=== PATIENT | male | born 1945 | race Caucasian/White ===

== ENCOUNTER 2020-02-28 18:41 | Emergency (ER) | payer OTHER, MEDICARE ==
[~2020-02-28] VITALS: Ht 185.4 cm; Wt 106.6 kg
[~2020-02-28 18:41] MED LIST: ASPI81CH PO; FISH1000 PO; HCTZ/TRIAMTERENE PO; Levitra20 MG PO; METF850 PO; METO50 PO; NIFE30ER PO; OMEP20ER PO; QUET25 PO
[2020-02-28 19:34] LABS: BASOPHILS ABSOLUTE AUTO 0.09 K/mm3 (0.00-0.23); BASOPHILS PERCENT AUTO 1 % (0-2); EOSINOPHILS ABSOLUTE AUTO 0.05 K/mm3 (0.00-0.68); EOSINOPHILS PERCENT AUTO 0 % (0-6); Hematocrit 55.1 % (37.0-53.0); Hemoglobin 18.6 g/dL (13.5-17.5); IMMATURE GRAN ABSOLUTE AUTO 0.09 K/mm3 (0.00-0.10); IMMATURE GRAN PERCENT AUTO 1 % (0-1); LYMPHOCYTES ABSOLUTE AUTO 1.39 K/mm3 (0.84-5.20); LYMPHOCYTES PERCENT AUTO 8 % (21-46); MONOCYTES ABSOLUTE AUTO 0.93 K/mm3 (0.16-1.47); MONOCYTES PERCENT AUTO 6 % (4-13); Mean Corpuscular HGB 28.6 pg (26.0-34.0); Mean Corpuscular HGB Conc 33.8 g/dL (31.5-36.5); Mean Corpuscular Volume 85 fL (80-100); Mean Platelet Volume 9.5 fL (9.1-12.4); NEUTROPHILS ABSOLUTE AUTO 13.97 K/mm3 (1.96-9.15); NEUTROPHILS PERCENT AUTO 85 % (41-73); Platelet Count 231 K/mm3 (150-400); RDW Coefficient Variation 13.4 % (11.7-14.2); RDW Standard Deviation 41.8 fL (35.1-46.3); White Blood Cell Count 16.52 K/mm3 (4.00-11.30)
[2020-02-28 20:48] LABS: Albumin/Globulin Ratio 0.8 (0.8-1.8); Bilirubin, Total 3.7 mg/dL (0.1-1.0); Bun/Creatinine Ratio 18.1 (12.0-20.0); Calcium, Blood 9.9 mg/dL (8.5-10.1); Creatinine, Blood 1.38 mg/dL (0.60-1.20); Globulin, Blood 4.9 g/dL (2.2-4.0); Potassium, Blood 3.7 mmol/L (3.5-5.5); Total Protein, Blood 8.9 g/dL (6.4-8.2)
[2020-02-29 00:48] LABS: International Normalized Ratio 1.07; Prothrombin Time Results 11.4 Sec (9.7-11.5)
== END 2020-02-29 02:27 | disposition short-term general hospital (02) ==
LOC: ER 18:41
PROVIDERS: Emergency Medicine; Physician Assistant
DX: A41.9 Sepsis, unspecified organism (principal); K80.50 Calculus of bile duct without cholangitis or cholecystitis without obstruction; E86.0 Dehydration; E87.1 Hypo-osmolality and hyponatremia; I10 Essential (primary) hypertension; E11.9 Type 2 diabetes mellitus without complications; Z87.891 Personal history of nicotine dependence; N17.9 Acute kidney failure, unspecified; Z88.0 Allergy status to penicillin; Z88.8 Allergy status to other drugs, medicaments and biological substances; Z79.82 Long term (current) use of aspirin; Z79.899 Other long term (current) drug therapy
CPT/HCPCS: 36415; 74177; 80053; 83605; 83690; 85025; 85610; 85730; 87040; 87077; 87186; 96361; 96365; 96367; 96375; 96376; 99284-25; J0744; J1170; J2405; J7030; Q9967; U0002

== ENCOUNTER 2020-05-06 11:26 | Day surgery (SDC) | payer OTHER ==
[~2020-05-06] VITALS: Ht 185.4 cm; Wt 100.4 kg
[~2020-05-06 11:26] MED LIST changes: +AMLO10 PO; +METF500 PO; +OLME20 PO; +TEMA30 PO; +Vitamin D2000 UNIT PO
== END 2020-05-06 13:40 | disposition home or self-care (01) ==
LOC: ORSCSDS 11:26
PROVIDERS: Internal Medicine Gastroenterology
PROC: 0DB68ZX Excision of Stomach, Via Natural or Artificial Opening Endoscopic, Diagnostic (ICD-10-PCS; principal; 2020-05-06 12:45)
DX: R10.9 Unspecified abdominal pain (principal); R19.7 Diarrhea, unspecified; Z87.11 Personal history of peptic ulcer disease; I48.91 Unspecified atrial fibrillation; I10 Essential (primary) hypertension; K21.9 Gastro-esophageal reflux disease without esophagitis; E11.9 Type 2 diabetes mellitus without complications; E78.5 Hyperlipidemia, unspecified; K74.60 Unspecified cirrhosis of liver; Z87.891 Personal history of nicotine dependence; K44.9 Diaphragmatic hernia without obstruction or gangrene; Z79.82 Long term (current) use of aspirin; Z79.899 Other long term (current) drug therapy
CPT/HCPCS: 82947; 88305; 88342; J2704; J7120

== ENCOUNTER 2020-11-28 17:03 | Inpatient (IN) | payer OTHER ==
[~2020-11-28] VITALS: Ht 182.9 cm; Wt 92.4 kg
[~2020-11-28 17:03] MED LIST changes: -ASPI81CH PO; +Aspirin EC81 MG PO; +DYAZIDE 37.5-21 EACH PO; -OLME20 PO; +TOPROL XL200 MG PO; -Vitamin D2000 UNIT PO
[2020-11-28 17:36] LABS: BASOPHILS ABSOLUTE AUTO 0.04 K/mm3 (0.00-0.23); BASOPHILS PERCENT AUTO 0 % (0-2); EOSINOPHILS ABSOLUTE AUTO 0.02 K/mm3 (0.00-0.68); EOSINOPHILS PERCENT AUTO 0 % (0-6); Hemoglobin 14.3 g/dL (13.5-17.5); IMMATURE GRAN ABSOLUTE AUTO 0.08 K/mm3 (0.00-0.10); IMMATURE GRAN PERCENT AUTO 1 % (0-1); LYMPHOCYTES ABSOLUTE AUTO 3.58 K/mm3 (0.84-5.20); LYMPHOCYTES PERCENT AUTO 21 % (21-46); MONOCYTES ABSOLUTE AUTO 0.81 K/mm3 (0.16-1.47); MONOCYTES PERCENT AUTO 5 % (4-13); Mean Corpuscular HGB 28.9 pg (26.0-34.0); Mean Corpuscular HGB Conc 33.3 g/dL (31.5-36.5); Mean Corpuscular Volume 87 fL (80-100); Mean Platelet Volume 10.5 fL (9.1-12.4); NEUTROPHILS ABSOLUTE AUTO 12.33 K/mm3 (1.96-9.15); NEUTROPHILS PERCENT AUTO 73 % (41-73); Platelet Count 252 K/mm3 (150-400); RDW Coefficient Variation 13.4 % (11.7-14.2); RDW Standard Deviation 42.7 fL (35.1-46.3); Red Blood Cell Count 4.94 M/mm3 (4.30-5.90); White Blood Cell Count 16.86 K/mm3 (4.00-11.30)
[2020-11-28 17:56] LABS: Albumin, Blood 3.6 g/dL (3.4-5.0); Albumin/Globulin Ratio 1.1 (0.8-1.8); Bilirubin, Total 0.8 mg/dL (0.1-1.0); Bun/Creatinine Ratio 22.9 (12.0-20.0); Calcium, Blood 8.6 mg/dL (8.5-10.1); Creatinine, Blood 2.36 mg/dL (0.60-1.20); Globulin, Blood 3.2 g/dL (2.2-4.0); Potassium, Blood 4.3 mmol/L (3.5-5.5); Total Protein, Blood 6.8 g/dL (6.4-8.2)
[2020-11-28] MEDS ORDERED: TEMA30 PO (19:37)
[2020-11-28] MEDS ORDERED: AMLO10 PO (19:39)
[2020-11-28] MEDS ORDERED: OLMESARTAN MEDOX5 MG PO (19:40)
[2020-11-28] MEDS ORDERED: Vitamin D2000 UNIT PO (19:40)
[2020-11-28] MEDS ORDERED: DEPO-TESTO200 MG/11 IM (19:42)
[2020-11-28 20:19] LABS: Source, Urine Clean Catch
[2020-11-28 20:26] LABS: Bilirubin, Urine Neg (Neg); Blood, Urine Neg (Neg); Glucose Qualitative, Urine Neg (Neg); Ketones, Urine Neg (Neg); Leukocyte Esterase, Urine Neg (Neg); Nitrite, Urine Neg (Neg); Protein, Urine Neg (Neg); Urobilinogen, Urine NORM (Normal)
[2020-11-28 20:32] LABS: Appearance, Urine Clear (Clear); Color, Urine Yellow (P-Yellow)
[2020-11-28 22:24] LABS: Hemoglobin 12.3 g/dL (13.5-17.5)
--- NOTE | 2020-11-28 22:46 | NUR ---
PT ADMITTED TO MED FLOOR FROM ED AT 2130. PT AMBULATED TO THE BATHROOM W/ 1 PERSON SBA. HAD BRIGHT RED BM CONTAINING CLOTS. UPON RETURNING TO BED, PT BECAME WEAK AND LEGS BUCKLED, ASSISTED TO THE FLOOR. WHILE SITTING ON THE FLOOR, PT LOST CONSCIOUSNESS. BREATHING WAS AGONAL FOR ABOUT 10 SECONDS. PT ASSIST ONTO THE FLOOR ONTO RIGHT SIDE. REGAINED CONSCIOUSNESS AFTER A TOTAL OF ABOUT 20 SECONDS. AAOX4 UPON COMING TO. DR ORTIZ ENTERED ROOM AND ORDERED T/F TO ICU. PT ASSISTED BACK TO BED USING A LIFT. REPORT GIVEN AND PT T/F TO ICU 3 AT ABOUT 2245.
--- NOTE | 2020-11-28 23:00 | NUR ---
ARRIVAL: PT ARRIVES TRANSFER FROM MEDICAL FLOOR AFTER A SYNCOPAL EVENT WHILE STANDING TO USE THE BSC. PER MEDICAL FLOOR REPORT, PT WAS SUPPORTED DOWN TO THE FLOOR & DID NOT SUSTAIN ANY INJURIES. PER PT HE IS S/P COLONOSCOPY 2 DAYS AGO 11/27. HE HAD SUBSEQUENT RECTAL BLEEDING THAT HAS WORSENED SINCE, TODAY HE HAD WORSENING ABD CRAMPING & BEGAN PASSING CLOTS WHICH PROMPTED HIS ADMISSION. UPON ARRIVAL PT IS NOTABLY PALE, DIAPHORETIC, & TIRED. ABLE TO ANSWER QUESTIONS & PARTICIPATE IN ASSESSMENTS. VS STABLE. VERY DARK, RED, BLOODY, DISCHARGE W/ LARGE CLOTS FROM RECTUM, PT INCONTINENT W/ COUGHING OR MOVEMENT SEE SHIFT ASSESSMENT FOR FULL ASSESSMENT.
--- NOTE | 2020-11-29 00:05 | NUR ---
UPDATE: DIANA ORTIZ @ BEDSIDE TO DISCUSS PLAN FOR SURE PREP T/O THE NIGHT, NPO STARTING @ 0700, & SUBSEQUENT COLONOSCOPY IN THE MORNING. PT IS AGREEABLE TO THIS PLAN. DISCUSSED W/ DIANA PT's PERSISTENT NAUSEA, WRETCHING, & POOR TOLERANCE FOR PO INTAKE. DISCUSSED NAUSEA MEDS W/ NG PLACEMENT TO GIVE THE SURE-PREP. DIANA AGREES & VERBAL ORDERS GIVEN. PLAN FOR NG PLACEMENT SHORTLY.
--- NOTE | 2020-11-29 02:15 | NUR ---
UPDATE: NG PLACEMENT SEVERAL ATTEMPTS @ NGT PLACEMENT UNSUCCESSFUL, PT UNABLE TO TOLERATE D/T NAUSEA & ANXIETY. DISCUSSED DOBHOFF PLACMENT W/ PT & PT STS HE WILL TRY TO DRINK THE SURE-PREP & AGREES THAT IF HE BEGINS TO VOMIT, HE WILL ACCEPT A DOBHOFF. PT GIVEN SURE-PREP & WATER CUP, THUS FAR TOLERATING VERY WELL. WILL CONTINUE TO MONITOR & REPORT APPROPRIATE.
--- NOTE | 2020-11-29 04:00 | NUR ---
UPDATE: PT ASSISTED ONTO BEDPAN MULTIPLE TIMES & HAD SEVERAL LARGE BRIGHT RED LIQUID STOOLS W/ MANY DIME & SARWAT-SIZED CLOTS. PT REPORTS WAVES OF ABD CRAMPING, BLOATING, & DISTENTION BEFORE HE HAS A BM. PT BECOMES NOTABLY DIAPHORETIC, TREMULOUS, & AT TIMES BEGINS TO WRETCH. AFTER HIS BM, PT APPEARS MUCH MORE COMFORTABLE & REPORTS LESS PAIN.
[2020-11-29 04:06] LABS: BASOPHILS ABSOLUTE AUTO 0.03 K/mm3 (0.00-0.23); BASOPHILS PERCENT AUTO 0 % (0-2); EOSINOPHILS PERCENT AUTO 0 % (0-6); Hematocrit 32.6 % (37.0-53.0); Hemoglobin 11.1 g/dL (13.5-17.5); IMMATURE GRAN ABSOLUTE AUTO 0.07 K/mm3 (0.00-0.10); IMMATURE GRAN PERCENT AUTO 0 % (0-1); LYMPHOCYTES ABSOLUTE AUTO 2.11 K/mm3 (0.84-5.20); LYMPHOCYTES PERCENT AUTO 12 % (21-46); MONOCYTES ABSOLUTE AUTO 0.66 K/mm3 (0.16-1.47); MONOCYTES PERCENT AUTO 4 % (4-13); Mean Corpuscular HGB 29.3 pg (26.0-34.0); Mean Corpuscular Volume 86 fL (80-100); Mean Platelet Volume 10.4 fL (9.1-12.4); NEUTROPHILS ABSOLUTE AUTO 14.17 K/mm3 (1.96-9.15); NEUTROPHILS PERCENT AUTO 83 % (41-73); Platelet Count 251 K/mm3 (150-400); RDW Coefficient Variation 13.3 % (11.7-14.2); RDW Standard Deviation 42.5 fL (35.1-46.3); Red Blood Cell Count 3.79 M/mm3 (4.30-5.90); White Blood Cell Count 17.04 K/mm3 (4.00-11.30)
[2020-11-29 04:25] LABS: Albumin, Blood 3.1 g/dL (3.4-5.0); Albumin/Globulin Ratio 1.2 (0.8-1.8); Bilirubin, Total 0.6 mg/dL (0.1-1.0); Bun/Creatinine Ratio 24.2 (12.0-20.0); Calcium, Blood 7.5 mg/dL (8.5-10.1); Creatinine, Blood 2.52 mg/dL (0.60-1.20); Globulin, Blood 2.5 g/dL (2.2-4.0); Potassium, Blood 4.5 mmol/L (3.5-5.5); Total Protein, Blood 5.6 g/dL (6.4-8.2)
--- NOTE | 2020-11-29 05:15 | NUR ---
UPDATE: SURE PREP & RECTAL TUBE PT HAS FINISHED DRINKING THE SURE PREP, NAUSEA CONTINUES HOWEVER NO EMESIS. PT ENCOURAGED TO CONTINUE TO DRINK FLUIDS UNTIL NPO @ 0700, GIVEN WATER CUP. RECTAL TUBE PLACED, DRAINAGE PROGRESSIVELY CLEAR, NOW A LIGHT PINK, FEW CLOTS SEEN. PT APPEARS MUCH MORE COMFORTABLE AFTER RECTAL TUBE PLACEMENT, NOW ABLE TO REST ON HIS R SIDE W/ ABD SUPPORTED W/ PILLOWS. STS HIS ABD PAIN & CRAMPING HAS MUCH IMPROVED.
--- NOTE | 2020-11-29 06:09 | NUR ---
UPDATE: FAMILY PHONE CALL PT'S DAUGHTERGIOVANNA, CALLS ICU DESK. PER PT OK, DAUGHTER GIVEN UPDATE ON PT'S IMPROVEMENT T/O THE NIGHT & PLAN FOR SCOPE THIS MORNING.
--- NOTE | 2020-11-29 07:00 | NUR ---
SHIFT SUMMARY: PT IMPROVED T/O THE NIGHT. EXPERIENCING LESS PAIN, ABD DISTENTION, & NAUSEA AFTER RECTAL TUBE HAS BEEN PLACED. APPROX 900mls OUTPUT SINCE PLACEMENT. DISCHARGE IS BECOMING MORE CLEAR, NOW A LIGHT PINK COLOR & CLOTS APPEAR TO HAVE RESOLVED. VS STABLE T/O NIGHT. SPOUSE UPDATED ON PT'S IMPROVEMENTS & PLAN FOR CARE THIS MORING. SPOUSE IS AGREEABLE TO THIS PLAN & WILL ARRIVE @ VISITING HOURS. REPORT GIVEN TO ELIZABETH ABRAMS TO ASSUME CARE.
--- NOTE | 2020-11-29 07:55 | NUR ---
ASSUMED CARE BEDSIDE REPORT RECIEVED. PT IS LAYING IN BED AWAKE, ALERT, AND ORIENTED. PT ANSWERS QUESTIONS APPROPRIATELY. REVIEWED PLAN OF CARE FOR THIS MORNING WITH PT. BOWEL PREP DONE, PT WITH RECTAL TUBE IN PLACE WITH LARGE AMOUNT OF CLEAR PINK OUTPUT NOTED. IV'S IN PLACE WITH NS INFUSING AT 75 ML/HR. PT COMPLAINS OF DULL DISCOMFORT TO RIGHT SIDE/RIBS. VITAL SIGNS STABLE. PT ON ROOM AIR. URINAL AT BEDSIDE. WILL CONTINUE TO MONITOR.
[2020-11-29 10:41] LABS: Hemoglobin 10.9 g/dL (13.5-17.5)
--- NOTE | 2020-11-29 13:31 | NUR ---
11/29/20 1330 Cristy Cook History, Chart, Medications and Allergies reviewed before start of procedure. Patient confirms NPO status and agrees with scheduled surgery. 3-LEAD EKG REVIEWED WITH PHYSICIAN PRIOR TO START OF PROCEDURE. MONITOR INTACT WITH CONTINUOUS PULSE OXIMETRY AND INTERMITTENT BP. PATIENT DETERMINED TO BE ASA APPROPRIATE FOR PROPOFOL SEDATION PRIOR TO START OF PROCEDURE BY .
[2020-11-29 16:23] LABS: Hematocrit 29.5 % (37.0-53.0); Hemoglobin 9.9 g/dL (13.5-17.5)
--- NOTE | 2020-11-29 16:48 | NUR ---
SHIFT SUMMARY PT DOING WELL THIS AFTERNOON. COLONOSCOPY DONE EARLY AFTERNOON. PT HAS REMAINED AWAKE, ALERT AND ORIENTED. PT WITH EPISODES OF ANXEITY THROUGHOUT THE DAY. VITAL SIGNS HAVE REMAINED STABLE. PT ON ROOM AIR. IV'S SALINE LOCKED. PT UP TO TOILET TO VOID. PT REPORTS NO DIZZINESS. PT TAKING PO LIQUIDS WELL. PT SPOUSE AT BEDSIDE THIS AFTERNOON. WILL CONTINUE TO MONITOR AND REPORT OFF TO ONCOMING RN.
--- NOTE | 2020-11-29 19:15 | NUR ---
ASSUMING PT CARE: PT SITTING UP IN BED, RESTING W/ EVEN & UNLABORED RR. PT APPROPRIATELY INTERACTIVE W/ STAFF, A&O, ABLE TO FOLLOW COMMANDS, & RECALLS THE DAY's EVENTS. PT ALSO RECALLS FEELING CONFUSED EARLIER TODAY & STS HE FEELS MUCH IMPROVED SINCE. DENIES ANY ABD PAIN OR DISCOMFORT. PT REPORTS PASSING FLATUS W/OUT DIFF OR PAIN. VS STABLE. WILL CONTINUE TO MONITOR & REPORT APPROPRIATE.
--- NOTE | 2020-11-29 19:56 | NUR ---
UPDATE: PT TEACHING IN SPEAKING W/ PT REGARDING HIS ORDERED LIQUID DIET, PT INFORMS RN THAT W/ HIS LAST COLONOSCOPY ON TUESDAY, HE RETURNED HOME & ATE A VERY LARGE BREAKFAST OF EGGS, EVANGELISTA, & TOAST. HE DID NOT ADHERE TO HIS LIQUID DIET AT ALL & IMMEDIATELY RETURNED TO SOLID FOODS. THIS IS WHEN HIS RECTAL BLEEDING BEGAN TO INCREASE. PT EDUCATED ON THE IMPORTANCE OF ADHERING TO THE LIQUID DIET TO ENSURE TISSUE HEALING & PREVENT FURTHER BLEEDING. PT APPEARED VERY RECEPTIVE & VERBALIZED UNDERSTANDING. SEE FACE MAN
--- NOTE | 2020-11-29 23:00 | NUR ---
UPDATE: O2 PLACEMENT PT FOUND TO HAVE MOMENTS OF HYPOXIA WHILE SLEEPING W/ SATS DEC TO MID 80's W/ SHORT PERIODS OF APNEA FOLLOWED BY A COUGHING FIT. PT QUICKLY RECOVERS & SATS RETURN TO WNL. SUPPLEMENTAL O2 @ 2L/min VIA NC PLACED & PT HAS SINCE BEEN RESTING SOUNDLY W/ NO DEC IN O2 SAT. PT DENIES ANY Hx OF SLEEP APNEA OR "BREATHING PROBLEMS", HOWEVER HE DOES REPORT A EXTENSIVE Hx OF POOR SLEEP HYGEINE & DIFF FALLING ASLEEP. WILL CONTINUE TO MONITOR & REPORT APPROPRIATE.
[2020-11-30 03:39] LABS: Hematocrit 24.9 % (37.0-53.0); Hemoglobin 8.4 g/dL (13.5-17.5); Mean Corpuscular HGB 29.2 pg (26.0-34.0); Mean Corpuscular HGB Conc 33.7 g/dL (31.5-36.5); Mean Corpuscular Volume 87 fL (80-100); Mean Platelet Volume 10.4 fL (9.1-12.4); Platelet Count 180 K/mm3 (150-400); RDW Coefficient Variation 13.4 % (11.7-14.2); RDW Standard Deviation 42.2 fL (35.1-46.3); Red Blood Cell Count 2.88 M/mm3 (4.30-5.90); White Blood Cell Count 13.11 K/mm3 (4.00-11.30)
[2020-11-30 03:59] LABS: Bun/Creatinine Ratio 26.2 (12.0-20.0); Calcium, Blood 7.4 mg/dL (8.5-10.1); Creatinine, Blood 2.25 mg/dL (0.60-1.20); Potassium, Blood 3.4 mmol/L (3.5-5.5)
--- NOTE | 2020-11-30 06:35 | NUR ---
SHIFT SUMMARY: PT RESTED WELL T/O THE NIGHT. INITIALLY ANXIOUS & UNABLE TO SLEEP, HOWEVER AFTER RECEIVING AN ORDER FOR HIS NIGHTTIME HOME MED, 30mg RESTORIL, PT QUICKLY FELL ASLEEP. MULTIPLE EPISODES OF FLATUS, NO BM THIS SHIFT. APPROX 900ml URINE OUTPUT, PT DENIES ANY RETURN OF HIS RETENTION. ABD REMAINED SOFT, NONTENDER. NO ACUTE NEG CHANGES T/O SHIFT.
--- NOTE | 2020-11-30 09:21 | NUR ---
THIS AM PT ATE BREAKFAST WITHOUT ISSUE BUT AFTER BREAKFAST HR INCREASED TO 150'S-160'S. PT ORIGINALLY STATED NO CP BUT DID HAVE SOME PRESSURE AFTER SUSTAINING 150'S-160'S. HYPERTENSIVE. EKG SHOWS AFIB RVR. DR. VILLATORO ORDERED IVP DOSE OF CARDIZEM AND METOPROLOL. PT ALSO HAD DOSE OF PO METOPROLOL THAT HE NORMALLY TAKES AT HOME. DENIES SOB OR N/V. PT STATES HIS STOMACH FEELS FINE AFTER EATING AND HAVE NOT SEEN ANY BLOODY BM'S. WILL HAVE H&H DRAWN AT 1100. PT STATES CHEST PRESSURE RELIEVES AFTER HR IMPROVES.
[2020-11-30 11:04] LABS: Hematocrit 25.4 % (37.0-53.0); Hemoglobin 8.6 g/dL (13.5-17.5)
--- NOTE | 2020-11-30 18:24 | NUR ---
SUMMARY PT RESTING IN BED. A/O X4. DENIES PAIN, N/V, AND SOB. THIS AM PT CONVERTED TO AFIB RVR. HE RECEIVED ON DOSE OF CARDIZEM 20MG, METOPROLOL 5MG IV, AND HIS USUAL DOSE OF METOPROLOL 200MG PO. SINCE THEN PT REMAINS AFIB 80-120. HAS NOT SUSTAINED OVER 120. NO PRESSURE IN CHEST SINCE THIS AM. NO SIGNS OF BLEEDING AND PT HAS BEEN TOLERATING DIET WELL. NO SIGN OF DISTRESS NOW. CALL LIGHT IN REACH.
--- NOTE | 2020-11-30 19:15 | NUR ---
ASSUMING PT CARE: PT SITTING UP IN BED, WATCHING TV. APPROPRIATELY INTERACTIVE W/ STAFF. VS STABLE, MONITOR INDICATES A SINUS RHYTHM. PER REPORT PT HAD PREVIOUSLY GONE INTO AFIB W/ RVR & WAS GIVEN DILTIAZEM & METOPROLOL. PT DENIES ANY C/O CP OR SOB. NADN.
--- NOTE | 2020-11-30 20:00 | NUR ---
UPDATE: PT EDUCATION. IN DISCUSSING PT's MEDICATIONS FOR THE AM, PT STS HE BELIEVES TAKING THE PRILOSEC ON AN EMPTY STOMACH THIS MORNING IS WHAT CAUSED HIS AFIB EPISODE. HE EXPLAINS HE IS UNABLE TO EAT ANY FOODS @ HOME WHICH HAVE ANY SPICE & WILL NOT TAKE ANY PILLS ON AN EMPTY STOMACH BECAUSE "I GO INTO AFIB". THIS RN SPENT SEVERAL MINUTES EXPLAINING THE IMPORTANCE OF TAKING PRILOSEC S/P GI BLEED & THE MED's EFFICACY TAKEN W/ FOOD vs. AN EMPTY STOMACH. PT STS HE UNDERSTANDS BUT IS NOT WILLING TO TAKE ON AN EMPTY STOMACH ONCE DC'd HOME. WILL CONTINUE TO REINFORCE & EDUCATE.
--- NOTE | 2020-12-01 02:00 | NUR ---
UPDATE: PAIN PT REPORTS WORSENING R KNEE PAIN THAT IS KEEPING HIM AWAKE. STS THIS IS CHRONIC PAIN WHICH HE RECEIVES BI-YEARLY INJECTIONS FOR & TAKES PAIN MEDS PRN @ HOME. PT MEDICATED W/ PRN FENTANYL ORDERED. VS STABLE. +BED ALARM, CALL LIGHT W/ IN REACH.
[2020-12-01 03:38] LABS: Hematocrit 24.2 % (37.0-53.0); Mean Corpuscular HGB 28.9 pg (26.0-34.0); Mean Corpuscular HGB Conc 33.1 g/dL (31.5-36.5); Mean Corpuscular Volume 87 fL (80-100); Mean Platelet Volume 10.2 fL (9.1-12.4); Platelet Count 186 K/mm3 (150-400); RDW Coefficient Variation 13.2 % (11.7-14.2); RDW Standard Deviation 42.3 fL (35.1-46.3); Red Blood Cell Count 2.77 M/mm3 (4.30-5.90); White Blood Cell Count 11.33 K/mm3 (4.00-11.30)
[2020-12-01 03:53] LABS: Bun/Creatinine Ratio 24.7 (12.0-20.0); Calcium, Blood 7.5 mg/dL (8.5-10.1); Creatinine, Blood 1.58 mg/dL (0.60-1.20); Potassium, Blood 3.4 mmol/L (3.5-5.5)
--- NOTE | 2020-12-01 06:49 | NUR ---
SHIFT SUMMARY: PT RESTED WELL T/O THE NIGHT. ABLE TO USE THE URINAL W/OUT DIFF. PT MAINTAINING A SINUS RHYTHM, NO C/O CP OR DISCOMFORT. ASSISTED TO SIT @ THE BEDSIDE W/ LEGS DANGLING. TOLERATED WELL W/ NO CHANGE TO HR OR RHYTHM. PT REPORTED MILD DIZZINESS, HOWEVER TRANSIENT, LASTING ONLY A FEW MOMENTS. PLAN FOR POSS DISCHARGE HOME TODAY.
--- NOTE | 2020-12-01 10:00 | NUR ---
Care Assumed 0700 Pt A/O X4 and anxious at times. Pt states he does not want to take omeprazole on empty stomach because "it puts me in Afib." Pt states he takes the medication after breakfast at home. Pt educated on importance of taking omperazole on empty stomach. Pt has min understanding. Pt hypertensive at this time due to being very anxious about taking omeprazole. Pt states omeprazole and remains in NSR. On RA. Denies CP OR N/D. No tenderness of abd. Will continue to monitor. Call light within reach.
[2020-12-01 11:11] LABS: Hematocrit 23.7 % (37.0-53.0)
--- NOTE | 2020-12-01 12:32 | NUR ---
Provider visit Dr. Elizabeth in to see patient. Provider would like to discharge patient. Pt made aware. Provider educated pt on taking omperazole on empty stomach but ok to take with one cracker if needed. Pt states understanding.
--- NOTE | 2020-12-01 15:19 | NUR ---
Discharge 1415 Pt discharged home with via wheelchair. Pt denies CP and N/V/D. Pt was able to sit in chair at bedside and have lunch with minimal assistance. VSS. Pt signed discharge summary, explained medication, and education provided. All of patients belongings sent home.
--- NOTE | 2020-12-01 16:39 | NUR ---
Per admit trigger, pt requested alley cleaner visit. Pt discharged before I could see him.
== END 2020-12-01 14:22 | disposition home or self-care (01) | DRG 920 ==
LOC: ER 17:03 → MEDS 17:04 → ICUE 17:04 → MEDS 21:30 → ICUE 22:46
PROVIDERS: Emergency Medicine; Internal Medicine; Internal Medicine Gastroenterology; ADMIT Internal Medicine
PROC: 0W3P8ZZ Control Bleeding in Gastrointestinal Tract, Via Natural or Artificial Opening Endoscopic (ICD-10-PCS; principal; 2020-11-29 10:30)
DX: K91.840 Postprocedural hemorrhage of a digestive system organ or structure following a digestive system procedure (principal); N17.9 Acute kidney failure, unspecified; Q61.3 Polycystic kidney, unspecified; K57.92 Diverticulitis of intestine, part unspecified, without perforation or abscess without bleeding; E87.6 Hypokalemia; I16.0 Hypertensive urgency; E78.5 Hyperlipidemia, unspecified; I48.0 Paroxysmal atrial fibrillation; I12.9 Hypertensive chronic kidney disease with stage 1 through stage 4 chronic kidney disease, or unspecified chronic kidney disease; G89.29 Other chronic pain; E11.22 Type 2 diabetes mellitus with diabetic chronic kidney disease; N18.30 Chronic kidney disease, stage 3 unspecified; F32.9 Major depressive disorder, single episode, unspecified; K75.81 Nonalcoholic steatohepatitis (NASH); K74.60 Unspecified cirrhosis of liver; F43.10 Post-traumatic stress disorder, unspecified; G47.00 Insomnia, unspecified; K64.4 Residual hemorrhoidal skin tags; M15.9 Polyosteoarthritis, unspecified; K21.9 Gastro-esophageal reflux disease without esophagitis; Z98.890 Other specified postprocedural states; Z88.0 Allergy status to penicillin; Z88.8 Allergy status to other drugs, medicaments and biological substances; Z79.899 Other long term (current) drug therapy; Z79.82 Long term (current) use of aspirin; Z90.49 Acquired absence of other specified parts of digestive tract; Y83.8 Other surgical procedures as the cause of abnormal reaction of the patient, or of later complication, without mention of misadventure at the time of the procedure
CPT/HCPCS: 36415; 74176; 80048; 80053; 81003; 82570; 82947; 84300; 84484; 85014; 85018; 85025; 85027; 85610; 86850; 86900; 86901; 88305; 93005; 93010; 96361; 96374; 96375; 96376; 99283; 99285-25; A9270; G0378; J0171; J1430; J2250; J2405; J2704; J3010; J7030; J7120

== ENCOUNTER 2021-01-08 09:05 | Inpatient (IN) | payer OTHER ==
[~2021-01-08] VITALS: Ht 182.9 cm; Wt 93.1 kg
[~2021-01-08 09:05] MED LIST changes: +DEPO-TESTO200 MG/11 IM; +OLMESARTAN MEDOX5 MG PO; +Vitamin D2000 UNIT PO
[2021-01-08 09:25] LABS: Calcium, Ionized (POC) 1.12 mmol/L (1.10-1.46); Chloride (POC) 96 mmol/L (98-108); Creatinine (POC) 1.6 mg/dL (0.8-1.3); Glucose (ISTAT POC) 117 mg/dL (70-99); Hemoglobin (POC) 11.6 g/dL (13.5-17.5); Potassium (POC) 3.8 mmol/L (3.5-5.5); Sodium (POC) 134 mmol/L (135-148); Total CO2 (POC) 26 mmol/L (21-32)
[2021-01-08 09:34] LABS: Hematocrit 34.9 % (37.0-53.0); Hemoglobin 10.8 g/dL (13.5-17.5); Mean Corpuscular HGB 25.8 pg (26.0-34.0); Mean Corpuscular HGB Conc 30.9 g/dL (31.5-36.5); Mean Corpuscular Volume 84 fL (80-100); Mean Platelet Volume 8.9 fL (9.1-12.4); Platelet Count 289 K/mm3 (150-400); RDW Coefficient Variation 14.5 % (11.7-14.2); RDW Standard Deviation 43.6 fL (35.1-46.3); Red Blood Cell Count 4.18 M/mm3 (4.30-5.90); White Blood Cell Count 10.48 K/mm3 (4.00-11.30)
[2021-01-08] MEDS ORDERED: METF500 PO (09:36)
[2021-01-08] MEDS ORDERED: TAMS.4ER PO (09:37)
[2021-01-08 09:53] LABS: Albumin, Blood 3.5 g/dL (3.4-5.0); Albumin/Globulin Ratio 0.9 (0.8-1.8); Bilirubin, Total 0.3 mg/dL (0.1-1.0); Bun/Creatinine Ratio 16.4 (12.0-20.0); Calcium, Blood 8.7 mg/dL (8.5-10.1); Creatinine, Blood 1.4 mg/dL (0.60-1.20); Globulin, Blood 3.7 g/dL (2.2-4.0); Potassium, Blood 3.7 mmol/L (3.5-5.5); Total Protein, Blood 7.2 g/dL (6.4-8.2)
[2021-01-08 09:56] LABS: Troponin I 1.43 ng/mL (0.000-0.040)
--- NOTE | 2021-01-08 11:07 | NUR ---
PER V/O DR CR, DC AGGRASTAT GTT. ROGERIO, SATURATION EQUIPMENT OPERATOR NURSE NOTIFIED. CONTINUE TO MONITOR R RADIAL TR BAND.
[2021-01-08] MEDS ORDERED: RESTORIL PO (11:11)
--- NOTE | 2021-01-08 11:32 | NUR ---
Pt [facility] after 2 stents were placed. He hs righ radial access and the site was swollen the tech placed a blood pressure cuff above the site and the swelling improved. Dr Rao was notified and gave orders to stop the aggrostat and hold the heparin, both of which were done. After about 15 the swelling to the site is back and Dr Rao and the charge nurse were notified and the [facility] will be sending a tech to assess the site. Charge nurse is at the bedside. VSS. No bleeding noted to site as of now. Pt is a/o x 4 and has no complaints.
--- NOTE | 2021-01-08 16:00 | NUR ---
Swelling to right radial site improved after previosly noted interventions. The BP cuff is off and so is the second TR band after removing 14 ml of air from the balloon. Defalting has begun on the original TR band per DR Rao. The aggrostat was stopped at [address] wilson as well as the heparin being held. The pt reports no numbness or tingling in his right hand and has full ROM. BPs remain on the high side but the pt reports that is normal for him. Dr Rao came to see the pt at the bedside. Pt is able to make his needs known and calls appropriately when needed.
--- NOTE | 2021-01-08 17:50 | NUR ---
Shift Summary Pt has been a/o x 4 since his arrival with no complaints. He did have some swelling to his access site but that has been improving and his balloon to the TR band is deflated but remains in place. A powerglide to his LUE was started for IV access. He continues to use the urinal at the bedside. He has a good appetite and is drinking PO water. He remains on bedrest but has been calling appropriately when needed. He has his call light in reach and his is at the bedside.
--- NOTE | 2021-01-08 20:48 | NUR ---
TR BAND OFF AT THIS TIME. NO BLEEDING OR BRUISING. SLIGHT R WRIST SWELLING. OPSITE APPLIED, ARM BOARD IN PLACE.
--- NOTE | 2021-01-09 05:58 | NUR ---
SHIFT SUMMARY PT A&OX4, PLEASANT. [id number]% ON RA. TELEMETRY READS SR W/ OCCASIONAL PVCS. HR HIGH 40'S-70'S. PT HAS R RADIAL SITE, REMOVED AT BEGINNING OF SHIFT, SEE PREVIOUS NOTE. SITE HAS NO BRUISING OR BLEEDING, SOFT. ARM BOARD IN PLACE ALL NIGHT. PT DENIES PAIN. PT USED URINAL AT BEDSIDE MULTIPLE TIMES DURING SHIFT. FLUIDS INFUSED PER EMAR. PT SLEPT MOST OF SHIFT, REPOSITIONING SELF IN BED. CALL LIGHT IN REACH. WILL GIVE REPORT TO ONCOMING NURSE.
[2021-01-09 06:03] LABS: BASOPHILS ABSOLUTE AUTO 0.03 K/mm3 (0.00-0.23); BASOPHILS PERCENT AUTO 0 % (0-2); EOSINOPHILS ABSOLUTE AUTO 0.18 K/mm3 (0.00-0.68); EOSINOPHILS PERCENT AUTO 2 % (0-6); Hematocrit 28.2 % (37.0-53.0); Hemoglobin 8.9 g/dL (13.5-17.5); IMMATURE GRAN ABSOLUTE AUTO 0.04 K/mm3 (0.00-0.10); IMMATURE GRAN PERCENT AUTO 0 % (0-1); LYMPHOCYTES ABSOLUTE AUTO 1.55 K/mm3 (0.84-5.20); LYMPHOCYTES PERCENT AUTO 17 % (21-46); MONOCYTES ABSOLUTE AUTO 0.68 K/mm3 (0.16-1.47); MONOCYTES PERCENT AUTO 8 % (4-13); Mean Corpuscular HGB Conc 31.6 g/dL (31.5-36.5); Mean Corpuscular Volume 83 fL (80-100); Mean Platelet Volume 9.2 fL (9.1-12.4); NEUTROPHILS ABSOLUTE AUTO 6.64 K/mm3 (1.96-9.15); NEUTROPHILS PERCENT AUTO 73 % (41-73); Platelet Count 231 K/mm3 (150-400); RDW Coefficient Variation 14.7 % (11.7-14.2); RDW Standard Deviation 44.2 fL (35.1-46.3); Red Blood Cell Count 3.42 M/mm3 (4.30-5.90); White Blood Cell Count 9.12 K/mm3 (4.00-11.30)
[2021-01-09 06:24] LABS: Bun/Creatinine Ratio 15.3 (12.0-20.0); Calcium, Blood 8.1 mg/dL (8.5-10.1); Creatinine, Blood 1.31 mg/dL (0.60-1.20); Potassium, Blood 3.6 mmol/L (3.5-5.5)
--- NOTE | 2021-01-09 08:09 | NUR ---
pt laying in bed eating his breakfast, a/ox3, pleasant and cooperative with care, follows commands well, denies pain, states he feels a lot better than he did when he came in, lungs are clear t/o, resp even and unlabored, no cough noted, hrr, tele in place, running sr with pvc's, no edema noted except to right wrist is slightly swollen from access, iv is power glide to savanah, site is clear and patent, btx4, abd flat soft nontender, voids without diff, skin c/w/d, tr band site to right wrist, arm board in place, rubi martin, call light in reach.
--- NOTE | 2021-01-09 13:30 | NUR ---
PT UP TO BATHROOM, STOOD AND AMBULATED WITH OUT DIFF, GAIT NOTED TO BE STEADY, CALL LIGHT IN REACH.
--- NOTE | 2021-01-09 18:29 | NUR ---
spouce in to visit, no acute changes this shift, no complaints, has been downgraded to pcu, call light in reach.
[2021-01-09] MEDS ORDERED: VARDENAFIL HCL20 MG PO (20:09)
--- NOTE | 2021-01-09 20:11 | NUR ---
PATIENT HYPERTENSIVE; REPORT TAKES 5MG (1/4 OF A 20MG) LEVITRA WHEN HE IS HYPERTENSIVE AT HOME.
--- NOTE | 2021-01-09 20:15 | NUR ---
ASSUMED CARE OF PATIENT AT APPROXIMATELY 1910 FROM ANA CRISTINA Nguyen RN. PATIENT PCU STATUS. ALERT AND ORIENTED X4; SBA OUT OF BED PER REPORT. PATIENT DENIES PAIN, NUMBNESS, TINGLING, DIZZINESS OR NAUSEA. PATIENT REPORTS HE IS TIRED OF BEING IN BED BUT REFUSES TO GET UP; STATES HE WILL TRY IN THE MORNING; USES URINAL IN BED. SR ON HEART MONITOR; HYPERTENSIVE; SEE PREVIOUS NOTE; PG RICARDO S/L; PIV L ARM S/L. RIGHT RADIAL SITE WNL; NO BLEEDING OR HEMATOMA NOTED. OXYGEN SATURATION ABOVE 90% ON ROOM AIR.
--- NOTE | 2021-01-09 21:12 | NUR ---
CALLED DR. HUDSON ABOUT PATIENT BEING HYPERTENSIVE 160-180'S SYSTOLIC; NO PRN MEDICATION SCHEDULED. DEA BEING A LITTLE HYPERTENSIVE SINCE HE HAS BEEN HYPERTENSIVE FOR A WHILE; REPORTED THAT PATIENT TAKES LEVITRA 5MG AT HOME FOR HIGH BLOOD PRESSURE; DR. HUDSON RESUMED HOME DOSE OF AMLODIPINE FOR NOW AND THEN QHS AFTER.
[2021-01-10 05:29] LABS: BASOPHILS ABSOLUTE AUTO 0.04 K/mm3 (0.00-0.23); BASOPHILS PERCENT AUTO 0 % (0-2); EOSINOPHILS ABSOLUTE AUTO 0.21 K/mm3 (0.00-0.68); EOSINOPHILS PERCENT AUTO 2 % (0-6); Hematocrit 30.4 % (37.0-53.0); Hemoglobin 9.6 g/dL (13.5-17.5); IMMATURE GRAN ABSOLUTE AUTO 0.04 K/mm3 (0.00-0.10); IMMATURE GRAN PERCENT AUTO 0 % (0-1); LYMPHOCYTES ABSOLUTE AUTO 2.09 K/mm3 (0.84-5.20); LYMPHOCYTES PERCENT AUTO 19 % (21-46); MONOCYTES ABSOLUTE AUTO 0.86 K/mm3 (0.16-1.47); MONOCYTES PERCENT AUTO 8 % (4-13); Mean Corpuscular HGB 25.9 pg (26.0-34.0); Mean Corpuscular HGB Conc 31.6 g/dL (31.5-36.5); Mean Corpuscular Volume 82 fL (80-100); Mean Platelet Volume 9.2 fL (9.1-12.4); NEUTROPHILS ABSOLUTE AUTO 7.56 K/mm3 (1.96-9.15); NEUTROPHILS PERCENT AUTO 70 % (41-73); Platelet Count 250 K/mm3 (150-400); RDW Coefficient Variation 14.8 % (11.7-14.2); RDW Standard Deviation 44.1 fL (35.1-46.3); Red Blood Cell Count 3.71 M/mm3 (4.30-5.90)
--- NOTE | 2021-01-10 05:35 | NUR ---
PATIENT REPORTS HE DID NOT SLEEP WELL DUE TO HIS CONSTIPATION THAT RESULTED IN BM LAST NIGHT; REPORTS FEELS BETTER AND WILL SLEEP AFTER HE GOES HOME. VSS. NO ACUTE CHANGES TO REPORT.
[2021-01-10 06:03] LABS: Anion Gap 4 mmol/L (6-16); Blood Urea Nitrogen 20 mg/dL (8-24); CHOL/HDL RATIO 4.3; CO2, Blood 30 mmol/L (21-32); Calcium, Blood 8.4 mg/dL (8.5-10.1); Chloride, Blood 99 mmol/L (98-108); Cholesterol 184 mg/dL (50-200); Creatinine, Blood 1.25 mg/dL (0.60-1.20); Glomerular Filtration Rate 56 (60-); Glucose, Blood 111 mg/dL (70-99); HDL Cholesterol 43 mg/dL (>39); LDL/HDL RATIO 2.7; Low Density Lipoprotein Chol 117 mg/dL (0-110); Potassium, Blood 3.4 mmol/L (3.5-5.5); Sodium, Blood 133 mmol/L (136-145); Triglycerides 118 mg/dL (30-160); Very Low Density Lipoprot Chol 23 mg/dL (6-32)
--- NOTE | 2021-01-10 09:05 | NUR ---
DR. HUDSON AT BEDSIDE. DISCUSSED POC. NOTIFIED HIM PATIENT'S POTASSIUM THIS AM WAS 3.4. DR. HUDSON STATED HE WAS OK WITH THAT AND THAT HE WAS NOT GOING TO ORDER REPLACEMENT. PATIENT REPORTING R KNEE PAIN RATED 10/10, STATES HE HAS HAD THIS PAIN BEFORE. ORDERS RECEIVED FOR TYLENOL 500 MG PO X1 NOW. PLAN IS TO DISCHARGE HOME WITH A FOLLOW-UP APPOINTMENT IN 3 WEEKS. HE REQUESTED TO GIVE THE PATIENT A BRILLINTA COUPON IF AVAILABLE. DR. HUDSON ALSO REMOVED THE TEGADERM DRESSING TO PATIENT'S R WRIST.
[2021-01-10] MEDS ORDERED: NITR.4SL SL (10:38)
[2021-01-10] MEDS ORDERED: TAMS.4ER PO (10:38)
[2021-01-10] MEDS ORDERED: EZET10 PO (10:39)
[2021-01-10] MEDS ORDERED: TICA90TA PO (10:39)
--- NOTE | 2021-01-10 12:10 | NUR ---
PATIENT DISCHARGED HOME AT APPROX 1200. REVIEWED DISCHARGE INSTRUCTIONS AND DISCHARGE MEDICATIONS WITH PATIENT AND HIS RUDY. MEDICATIONS CALLED TO NICKIE-YUE AT THE [facility]. STENT CARD AND BRILINTA COUPON SENT HOME WITH THE PATIENT. REVIEWED R RADIAL ARTERY ACCESS PRECAUTIONS AND DISCHARGE TEACHING. BOTH PATIENT AND HIS VERBALIZED UNDERSTANDING. DISHCARGE INSTRUCTIONS FAXED TO CARDIOLOGY SO THAT THEY CAN CALL PATIENT TO SET UP A FOLLOW UP APPOINTMENT. NO FURTHER QUESTIONS AT TIME OF DISCHARGE. ESCORTED OUT VIA WHEELCHAIR BY KENNY COPELAND.
== END 2021-01-10 12:16 | disposition home or self-care (01) | DRG 247 ==
LOC: ER 09:05 → ICUW 09:14
PROVIDERS: Emergency Medicine; Internal Medicine Cardiovascular Disease; ADMIT Internal Medicine Cardiovascular Disease
PROC: 027035Z Dilation of Coronary Artery, One Artery with Two Drug-eluting Intraluminal Devices, Percutaneous Approach (ICD-10-PCS; principal; 2021-01-08)
PROC: B2111ZZ Fluoroscopy of Multiple Coronary Arteries using Low Osmolar Contrast (ICD-10-PCS; 2021-01-08)
DX: I21.19 ST elevation (STEMI) myocardial infarction involving other coronary artery of inferior wall (principal); I12.9 Hypertensive chronic kidney disease with stage 1 through stage 4 chronic kidney disease, or unspecified chronic kidney disease; E78.5 Hyperlipidemia, unspecified; E78.00 Pure hypercholesterolemia, unspecified; N18.30 Chronic kidney disease, stage 3 unspecified; Z88.0 Allergy status to penicillin; Z88.8 Allergy status to other drugs, medicaments and biological substances; Z79.82 Long term (current) use of aspirin; Z79.899 Other long term (current) drug therapy
CPT/HCPCS: 36415; 76937; 80047; 80048; 80053; 80061; 84484; 85014; 85025; 85027; 85347; 86850; 86900; 86901; 93005; 93010; 93306; 93454; 96374; 99152; 99153; 99285-25; A9270; C1725; C1751; C1769; C1874; C1887; C1894; C9606; J1644; J2250; J3010; J3246; J7030; J7040; Q9967

== ENCOUNTER 2023-03-11 17:07 | Emergency (ER) | payer OTHER ==
[~2023-03-11] VITALS: Ht 185.4 cm; Wt 93.9 kg
[~2023-03-11 17:07] MED LIST changes: +EZET10 PO; +NITR.4SL SL; +RESTORIL PO; +TAMS.4ER PO; +TICA90TA PO; +VARDENAFIL HCL20 MG PO
[2023-03-11 17:57] LABS: BASOPHILS ABSOLUTE AUTO 0.04 K/mm3 (0.00-0.23); BASOPHILS PERCENT AUTO 0 % (0-2); EOSINOPHILS ABSOLUTE AUTO 0.13 K/mm3 (0.00-0.68); EOSINOPHILS PERCENT AUTO 1 % (0-6); Hematocrit 47.4 % (37.0-53.0); Hemoglobin 16.4 g/dL (13.5-17.5); IMMATURE GRAN ABSOLUTE AUTO 0.05 K/mm3 (0.00-0.10); IMMATURE GRAN PERCENT AUTO 1 % (0-1); LYMPHOCYTES ABSOLUTE AUTO 1.86 K/mm3 (0.84-5.20); LYMPHOCYTES PERCENT AUTO 19 % (21-46); MONOCYTES ABSOLUTE AUTO 0.98 K/mm3 (0.16-1.47); MONOCYTES PERCENT AUTO 10 % (4-13); Mean Corpuscular HGB 29.5 pg (26.0-34.0); Mean Corpuscular HGB Conc 34.6 g/dL (31.5-36.5); Mean Corpuscular Volume 85 fL (80-100); Mean Platelet Volume 10.1 fL (9.1-12.4); NEUTROPHILS ABSOLUTE AUTO 6.95 K/mm3 (1.96-9.15); NEUTROPHILS PERCENT AUTO 69 % (41-73); Platelet Count 134 K/mm3 (150-400); RDW Coefficient Variation 13.3 % (11.7-14.2); RDW Standard Deviation 41.7 fL (35.1-46.3); Red Blood Cell Count 5.55 M/mm3 (4.30-5.90); White Blood Cell Count 10.01 K/mm3 (4.00-11.30)
[2023-03-11 18:12] LABS: Source, Urine Voided
[2023-03-11 18:14] LABS: Appearance, Urine Clear (Clear); Bilirubin, Urine Neg (Neg); Blood, Urine Neg (Neg); Color, Urine Yellow (P-Yellow); Glucose Qualitative, Urine Neg (Neg); Ketones, Urine Neg (Neg); Leukocyte Esterase, Urine Neg (Neg); Nitrite, Urine Neg (Neg); Protein, Urine 1+ (Neg); Urobilinogen, Urine 2+ (Normal)
[2023-03-11 18:15] LABS: Albumin, Blood 3.3 g/dL (3.4-5.0); Albumin/Globulin Ratio 0.8 (0.8-1.8); Bilirubin, Total 1.1 mg/dL (0.1-1.0); Bun/Creatinine Ratio 15.2 (12.0-20.0); Calcium, Blood 8.6 mg/dL (8.5-10.1); Creatinine, Blood 1.58 mg/dL (0.60-1.20); Potassium, Blood 3.6 mmol/L (3.5-5.5); Total Protein, Blood 7.3 g/dL (6.4-8.2)
[2023-03-11 18:26] LABS: International Normalized Ratio 1.04; Prothrombin Time Results 10.9 Sec (9.7-11.5)
[2023-03-11] MEDS ORDERED: OXYC5 PO (19:44)
[2023-03-11 20:30] VITALS: BP 146/68
== END 2023-03-11 20:44 | disposition home or self-care (01) ==
LOC: ER 17:07
PROVIDERS: Emergency Medicine; Student in an Organized Health Care Education/Training Program
DX: I48.91 Unspecified atrial fibrillation (principal); Z88.8 Allergy status to other drugs, medicaments and biological substances; Z88.0 Allergy status to penicillin; Z88.1 Allergy status to other antibiotic agents; Z79.899 Other long term (current) drug therapy; Z79.82 Long term (current) use of aspirin; Z87.891 Personal history of nicotine dependence; I10 Essential (primary) hypertension; E11.9 Type 2 diabetes mellitus without complications; E78.00 Pure hypercholesterolemia, unspecified; K21.9 Gastro-esophageal reflux disease without esophagitis; E78.5 Hyperlipidemia, unspecified
CPT/HCPCS: 71045; 80053; 83880; 84484; 85025; 85610; 93005; 93010; 96374; 99285-25

== ENCOUNTER 2024-08-20 07:44 | Emergency (ER) | payer OTHER ==
[~2024-08-20] VITALS: Ht 182.9 cm; Wt 90.7 kg
[~2024-08-20 07:44] MED LIST changes: +FAMO20; +OXYC5 PO
[2024-08-20] MEDS ORDERED: HYDROmorphone HCl/Pf 1MG SYR IM ONE (09:10)
[2024-08-20] MEDS ORDERED: Ondansetron HCl 2 MG / ML 2ML Vial ONE (09:21)
[2024-08-20] MEDS ORDERED: NS 1,000 ML IV SCH (09:30)
[2024-08-20] MEDS ORDERED: HYDROmorphone HCl/Pf 1MG SYR IV ONE (09:35)
[2024-08-20 12:00] VITALS: BP 140/70
== END 2024-08-20 12:14 | disposition home or self-care (01) ==
LOC: ER 07:44
DX: S40.011A Contusion of right shoulder, initial encounter (principal); E11.22 Type 2 diabetes mellitus with diabetic chronic kidney disease; I12.9 Hypertensive chronic kidney disease with stage 1 through stage 4 chronic kidney disease, or unspecified chronic kidney disease; N18.30 Chronic kidney disease, stage 3 unspecified; I48.91 Unspecified atrial fibrillation; E78.00 Pure hypercholesterolemia, unspecified; K21.9 Gastro-esophageal reflux disease without esophagitis; Z88.0 Allergy status to penicillin; Z88.8 Allergy status to other drugs, medicaments and biological substances; Z79.82 Long term (current) use of aspirin; Z79.899 Other long term (current) drug therapy; I25.2 Old myocardial infarction; Z87.891 Personal history of nicotine dependence; Z59.89 Other problems related to housing and economic circumstances; W01.0XXA Fall on same level from slipping, tripping and stumbling without subsequent striking against object, initial encounter
CPT/HCPCS: 73030; 96374; 96375; 99283-25; J1171; J2405; J7030